=== PATIENT | female | born 1975 | race Caucasian/White ===

== ENCOUNTER → 2023-10-29 16:30 | Outpatient (REF) | payer OTHER, SELFPAY | LOC: WDC 16:30 | PROVIDERS: ATTENDING PHYSICIAN Family Medicine | DX: Z12.31 Encounter for screening mammogram for malignant neoplasm of breast (principal) | CPT/HCPCS: 77063; 77067 ==

== ENCOUNTER → 2024-03-16 11:32 | Outpatient (REF) | payer OTHER, SELFPAY | LOC: RAD 11:32 | PROVIDERS: ATTENDING PHYSICIAN Physician Assistant; FAMILY PHYSICIAN Family Medicine | DX: M25.579 Pain in unspecified ankle and joints of unspecified foot (principal); M54.50 Low back pain, unspecified; M79.673 Pain in unspecified foot | CPT/HCPCS: 72100; 72202; 73610; 73630 ==

== ENCOUNTER → 2025-01-27 12:25 | Outpatient (REF) | payer OTHER, SELFPAY | LOC: WDC 12:25 | PROVIDERS: ATTENDING PHYSICIAN Family Medicine | DX: Z12.31 Encounter for screening mammogram for malignant neoplasm of breast (principal) | CPT/HCPCS: 77063; 77067 ==

== ENCOUNTER 2025-04-14 06:24 | Day surgery (SDC) | payer OTHER, SELFPAY ==
[2025-04-14 07:22] LABS: Glucose - Point of Care 160 mg/dl (70-99)
== END 2025-04-14 08:46 | disposition home or self-care (01) ==
LOC: GI 06:24
PROVIDERS: ATTENDING PHYSICIAN Internal Medicine Gastroenterology
DX: Z12.11 Encounter for screening for malignant neoplasm of colon (principal); K57.30 Diverticulosis of large intestine without perforation or abscess without bleeding
CPT/HCPCS: G0121; 82962